=== PATIENT | female | born 1950 | race Two or more races ===

== ENCOUNTER 2018-02-13 14:39 | Outpatient (CLI) | payer OTHER ==
[~2018-02-13 14:39] MED LIST: LEVAQUIN750 MG PO; SYNTHROID150 MCG; TUSSI PRES-B L120 M1 PO; VASOTEC20 MG
== END 2018-02-13 14:40 | disposition home or self-care (01) ==
LOC: LAB 14:39
DX: D64.0 Hereditary sideroblastic anemia (principal)

== ENCOUNTER 2018-02-14 10:05 | Outpatient (CLI) | payer OTHER | END 2018-02-14 15:40 | disposition home or self-care (01) | LOC: SONOGRAMA 10:05 | DX: R10.84 Generalized abdominal pain (principal) ==

== ENCOUNTER 2018-06-07 23:08 | Emergency (ER) | payer OTHER ==
[~2018-06-07] VITALS: Ht 152.4 cm; Wt 68.0 kg
[2018-06-08] MEDS ORDERED: PEPCID40 MG PO (03:58)
[2018-06-08] MEDS ORDERED: ZOFRAN ODT4 MG PO (03:58)
== END 2018-06-08 04:18 | disposition home or self-care (01) ==
LOC: ER 23:08
DX: K52.89 Other specified noninfective gastroenteritis and colitis (principal); E86.0 Dehydration

== ENCOUNTER 2018-07-26 13:09 | Outpatient (CLI) | payer OTHER ==
[~2018-07-26 13:09] MED LIST changes: +PEPCID40 MG PO; +ZOFRAN ODT4 MG PO
== END 2018-07-26 15:29 | disposition home or self-care (01) ==
LOC: LAB 13:09
DX: Z23 Encounter for immunization (principal)

== ENCOUNTER 2019-03-30 11:35 | Emergency (ER) | payer OTHER ==
[~2019-03-30] VITALS: Ht 152.4 cm; Wt 68.0 kg
== END 2019-03-31 11:21 | disposition home or self-care (01) ==
LOC: ER 11:35
DX: K63.89 Other specified diseases of intestine (principal); R10.11 Right upper quadrant pain; R10.13 Epigastric pain

== ENCOUNTER → 2019-07-11 15:21 | Outpatient (CLI) | payer OTHER | END | disposition home or self-care (01) | LOC: LAB 15:21 | DX: J11.1 Influenza due to unidentified influenza virus with other respiratory manifestations (principal); D64.0 Hereditary sideroblastic anemia ==

== ENCOUNTER 2020-03-14 10:00 | Outpatient (CLI) | payer OTHER | END 2020-03-21 15:18 | disposition home or self-care (01) | LOC: PPH VACUNA 10:00 | DX: Z23 Encounter for immunization (principal) | CPT/HCPCS: 90688; G0008 ==

== ENCOUNTER 2020-03-21 08:31 | Outpatient (CLI) | payer OTHER | END 2020-03-21 08:36 | disposition home or self-care (01) | LOC: LAB 08:31 | PROVIDERS: ATTEND Internal Medicine Cardiovascular Disease | DX: E03.8 Other specified hypothyroidism (principal); E55.9 Vitamin D deficiency, unspecified; Z12.11 Encounter for screening for malignant neoplasm of colon; E78.2 Mixed hyperlipidemia; E11.9 Type 2 diabetes mellitus without complications; I10 Essential (primary) hypertension ==

== ENCOUNTER 2020-04-14 16:06 | Emergency (ER) | payer OTHER ==
[~2020-04-14] VITALS: Ht 154.9 cm; Wt 70.3 kg
== END 2020-04-14 16:52 | disposition home or self-care (01) ==
LOC: ER 16:06
DX: S60.042A Contusion of left ring finger without damage to nail, initial encounter (principal); M79.645 Pain in left finger(s); W23.0XXA Caught, crushed, jammed, or pinched between moving objects, initial encounter; Y93.89 Activity, other specified; Y92.69 Other specified industrial and construction area as the place of occurrence of the external cause; Y99.8 Other external cause status

== ENCOUNTER 2020-06-25 10:22 | Outpatient (CLI) | payer OTHER | END 2020-06-25 18:00 | disposition home or self-care (01) | LOC: PPH VACUNA 10:22 | DX: Z23 Encounter for immunization (principal) ==

== ENCOUNTER → 2020-10-08 08:11 | Outpatient (CLI) | payer OTHER | END | disposition home or self-care (01) | LOC: LAB 08:11 | PROVIDERS: ATTEND Internal Medicine Cardiovascular Disease | DX: M46.47 Discitis, unspecified, lumbosacral region (principal); M19.90 Unspecified osteoarthritis, unspecified site; I10 Essential (primary) hypertension; E11.9 Type 2 diabetes mellitus without complications; E03.8 Other specified hypothyroidism; E78.2 Mixed hyperlipidemia; E55.9 Vitamin D deficiency, unspecified ==

== ENCOUNTER → 2020-10-26 | Emergency (ER) | payer OTHER ==
[~2020-10-26] VITALS: Ht 152.4 cm; Wt 70.3 kg
== END | disposition home or self-care (01) ==
LOC: ER 07:11
DX: M54.5 Low back pain (principal)

== ENCOUNTER 2020-12-09 09:05 | Emergency (ER) | payer OTHER ==
[~2020-12-09] VITALS: Ht 152.4 cm; Wt 68.0 kg
== END 2020-12-10 14:31 | disposition home or self-care (01) ==
LOC: ER 09:05 → CPU-OBS 10:09 → ER 10:09
DX: I16.1 Hypertensive emergency (principal); I10 Essential (primary) hypertension; R07.89 Other chest pain

== ENCOUNTER 2020-12-23 13:10 | Emergency (ER) | payer OTHER ==
[~2020-12-23] VITALS: Ht 152.4 cm; Wt 70.3 kg
== END 2020-12-23 20:14 | disposition home or self-care (01) ==
LOC: ER 13:10 → CPU-OBS 13:26 → ER 20:14
DX: R07.89 Other chest pain (principal); R42 Dizziness and giddiness; R11.11 Vomiting without nausea

== ENCOUNTER 2021-01-17 07:16 | Outpatient (CLI) | payer OTHER | END 2021-01-17 07:22 | disposition home or self-care (01) | LOC: LAB 07:16 | PROVIDERS: ATTEND Internal Medicine Cardiovascular Disease | DX: D64.89 Other specified anemias (principal); R10.84 Generalized abdominal pain; E78.49 Other hyperlipidemia; E55.9 Vitamin D deficiency, unspecified; I10 Essential (primary) hypertension; E66.8 Other obesity ==

== ENCOUNTER 2021-01-21 07:23 | Outpatient (CLI) | payer OTHER | END 2021-01-21 07:25 | disposition home or self-care (01) | LOC: NUCLEAR 07:23 | PROVIDERS: ATTEND Internal Medicine Cardiovascular Disease | DX: I20.9 Angina pectoris, unspecified (principal); I10 Essential (primary) hypertension | CPT/HCPCS: 78452; 93017; A9500; J0153 ==

== ENCOUNTER 2021-04-06 08:00 | Outpatient (CLI) | payer OTHER | END 2021-04-06 08:15 | disposition home or self-care (01) | LOC: PPH VACUNA 08:00 | PROVIDERS: ATTEND Emergency Medicine Pediatric Emergency Medicine | DX: Z23 Encounter for immunization (principal) ==

== ENCOUNTER 2021-08-12 14:12 | Outpatient (CLI) | payer OTHER | END 2021-08-12 14:25 | disposition home or self-care (01) | LOC: SONOGRAMA 14:12 | PROVIDERS: ATTEND Internal Medicine Cardiovascular Disease | DX: M12.9 Arthropathy, unspecified (principal) ==

== ENCOUNTER 2021-12-14 12:57 | Outpatient (CLI) | payer OTHER ==
[~2021-12-14 12:57] MED LIST changes: +NEURONTIN300 MG PO
== END 2021-12-14 13:06 | disposition home or self-care (01) ==
LOC: MRI 12:57
PROVIDERS: ATTEND Physical Medicine & Rehabilitation
DX: M54.16 Radiculopathy, lumbar region (principal)
CPT/HCPCS: 72148

== ENCOUNTER 2022-02-24 08:00 | Outpatient (CLI) | payer OTHER | END 2022-02-24 08:05 | disposition home or self-care (01) | LOC: PPH VACUNA 08:00 | PROVIDERS: ATTEND Emergency Medicine Pediatric Emergency Medicine | DX: Z23 Encounter for immunization (principal) | CPT/HCPCS: 90686; G0008 ==

== ENCOUNTER 2022-02-26 14:11 | Outpatient (CLI) | payer OTHER | END 2022-02-26 14:21 | disposition home or self-care (01) | LOC: MRI 14:11 | PROVIDERS: ATTEND Obstetrics & Gynecology | DX: M17.11 Unilateral primary osteoarthritis, right knee (principal) | CPT/HCPCS: 73718 ==

== ENCOUNTER 2022-03-10 12:50 | Outpatient (CLI) | payer OTHER ==
[2022-03-12] MEDS ORDERED: CELEBREX200MG PO (11:07)
[2022-03-12] MEDS ORDERED: ULTRACET PO (11:08)
== END 2022-03-10 13:00 | disposition home or self-care (01) ==
LOC: PPH VACUNA 12:50
PROVIDERS: ATTEND Emergency Medicine Pediatric Emergency Medicine
DX: Z23 Encounter for immunization (principal)

== ENCOUNTER 2022-04-06 14:27 | Outpatient (CLI) | payer OTHER ==
[~2022-04-06 14:27] MED LIST changes: +CELEBREX200MG PO; +ULTRACET PO
== END 2022-04-06 14:32 | disposition home or self-care (01) ==
LOC: RAD 14:27
PROVIDERS: ATTEND Orthopaedic Surgery
DX: M25.551 Pain in right hip (principal); M17.11 Unilateral primary osteoarthritis, right knee

== ENCOUNTER 2022-04-09 14:19 | Outpatient (CLI) | payer OTHER | END 2022-04-09 14:20 | disposition home or self-care (01) | LOC: NUCLEAR 14:19 | PROVIDERS: ATTEND Orthopaedic Surgery | DX: M81.0 Age-related osteoporosis without current pathological fracture (principal) ==

== ENCOUNTER 2022-11-22 06:35 | Emergency (ER) | payer OTHER ==
[~2022-11-22] VITALS: Ht 154.9 cm; Wt 70.3 kg
== END 2022-11-22 14:33 | disposition home or self-care (01) ==
LOC: ER 06:35
DX: R19.7 Diarrhea, unspecified (principal); U07.1 COVID-19; J02.9 Acute pharyngitis, unspecified; Z91.013 Allergy to seafood

== ENCOUNTER 2023-01-08 11:37 | Outpatient (CLI) | payer OTHER | END 2023-01-08 11:43 | disposition home or self-care (01) | LOC: LAB 11:37 | PROVIDERS: ATTEND Internal Medicine Cardiovascular Disease | DX: E11.9 Type 2 diabetes mellitus without complications (principal); E03.9 Hypothyroidism, unspecified; E78.2 Mixed hyperlipidemia; I10 Essential (primary) hypertension ==

== ENCOUNTER → 2023-02-24 | Outpatient (CLI) | payer OTHER | END | disposition home or self-care (01) | LOC: PPH VACUNA | PROVIDERS: ATTEND Emergency Medicine Pediatric Emergency Medicine | DX: Z23 Encounter for immunization (principal) | CPT/HCPCS: 90686; G0008 ==

== ENCOUNTER 2023-03-07 13:52 | Outpatient (CLI) | payer OTHER | END 2023-03-07 13:53 | disposition home or self-care (01) | LOC: LAB 13:52 | PROVIDERS: ATTEND Internal Medicine Cardiovascular Disease | DX: J11.1 Influenza due to unidentified influenza virus with other respiratory manifestations (principal); A49.3 Mycoplasma infection, unspecified site; Z20.822 Contact with and (suspected) exposure to COVID-19 ==

== ENCOUNTER 2023-04-07 14:09 | Outpatient (CLI) | payer OTHER | END 2023-04-07 14:25 | disposition home or self-care (01) | LOC: MAMO-SONO 14:09 | PROVIDERS: ATTEND Internal Medicine Cardiovascular Disease | DX: N60.12 Diffuse cystic mastopathy of left breast (principal); Z12.31 Encounter for screening mammogram for malignant neoplasm of breast ==

== ENCOUNTER → 2023-04-23 11:21 | Outpatient (CLI) | payer OTHER ==
[2023-04-23 11:48] LABS: HEMATOCRIT 32.9 % (36.0-45.00); HEMOGLOBIN 11.2 g/dL (12.0-15.00); MEAN CORPUSCULAR HEMOGLOBIN 32.3 pg (27.00-32.0); MEAN CORPUSCULAR HGB CONC 34.1 g/dl (32.0-36.0); PLATELET COUNT 162 K/uL (150-450); RED BLOOD COUNT 3.46 M/uL (4.00-6.00); RED CELL DISTRIBUTION WIDTH 13.4 % (11.5-14.5)
[2023-04-23 12:13] LABS: CALCIUM 9.3 mg/dL (8.5-10.1); CREATININE SERUM 1.35 mg/dL (0.55-1.02); GFR 38.33; POTASSIUM 4.55 mEq/L (3.5-5.1)
[2023-04-23 12:17] LABS: INR 1.06; PARTIAL THROMBOPLASTIN TIME 23.1 SECONDS (22.0-34.0); PROTHROMBIN TIME 11.1 SECONDS (9.0-11.5)
== END | disposition home or self-care (01) ==
LOC: LAB 11:21
DX: D68.9 Coagulation defect, unspecified (principal); E78.5 Hyperlipidemia, unspecified

== ENCOUNTER 2023-06-04 10:14 | Outpatient (CLI) | payer OTHER ==
[2023-06-04 11:18] LABS: HEMATOCRIT 31.3 % (36.0-45.00); HEMOGLOBIN 10.7 g/dL (12.0-15.00); MEAN CELL VOLUME 94.7 fL (80.00-100.00); MEAN CORPUSCULAR HEMOGLOBIN 32.3 pg (27.00-32.0); MEAN CORPUSCULAR HGB CONC 34.1 g/dl (32.0-36.0); PLATELET COUNT 198 K/uL (150-450); RED CELL DISTRIBUTION WIDTH 13.4 % (11.5-14.5)
[2023-06-04 12:23] LABS: ALBUMIN 3.5 gm/dL (3.4-5.0); BILIRUBIN TOTAL 0.75 mg/dL (0.3-1.2); CALCIUM 9.1 mg/dL (8.5-10.1); CHOL HDL RATIO 2.9 (0-5.0); CREATININE SERUM 1.44 mg/dL (0.55-1.02); FREE TRIODOTIRONINE 2.21 pg/ml (2.18-3.98); GFR 35.58; POTASSIUM 4.17 mEq/L (3.5-5.1); T4 FREE 1.1 NG/ML (0.76-1.46); TOTAL PROTEIN 6.5 gm/dL (6.4-8.2); TSH 1.8 uIU/mL (0.358-3.74)
== END 2023-06-04 10:18 | disposition home or self-care (01) ==
LOC: LAB 10:14
PROVIDERS: ATTEND Internal Medicine
DX: E03.9 Hypothyroidism, unspecified (principal); E78.9 Disorder of lipoprotein metabolism, unspecified; R73.9 Hyperglycemia, unspecified; E55.9 Vitamin D deficiency, unspecified; I10 Essential (primary) hypertension

== ENCOUNTER 2023-06-05 14:32 | Emergency (ER) | payer OTHER ==
[~2023-06-05] VITALS: Ht 152.4 cm; Wt 68.0 kg
[2023-06-05 15:39] LABS: HEMATOCRIT 34.3 % (36.0-45.00); HEMOGLOBIN 11.7 g/dL (12.0-15.00); MEAN CELL VOLUME 95.4 fL (80.00-100.00); MEAN CORPUSCULAR HEMOGLOBIN 32.6 pg (27.00-32.0); MEAN CORPUSCULAR HGB CONC 34.2 g/dl (32.0-36.0); PLATELET COUNT 199 K/uL (150-450); RED BLOOD COUNT 3.59 M/uL (4.00-6.00); RED CELL DISTRIBUTION WIDTH 13.6 % (11.5-14.5)
[2023-06-05 15:58] LABS: ALBUMIN 3.7 gm/dL (3.4-5.0); BILIRUBIN TOTAL 0.62 mg/dL (0.3-1.2); BILIRUBIN,CONJUGATED 0.19 mg/dL (0.0-0.2); BILIRUBIN,UNCONJUGATED 0.43 mg/dL (0.0-0.6); CREATININE SERUM 1.58 mg/dL (0.55-1.02); GFR 31.97; POTASSIUM 4.47 mEq/L (3.5-5.1)
[2023-06-05 17:13] LABS: PH,URINE 5.5 (5.0-8.0); URINE APPEARANCE Clear; URINE BILIRRUBIN Negative (NEGATIVE); URINE BLOOD Negative; URINE COLOR Yellow; URINE GLUCOSE Negative (NEGATIVE); URINE LEUKOCYTE Trace; URINE NITRATE Negative; URINE PROTEIN Negative (NEGATIVE); URINE UROBILINOGEN 0.2 E.U./dl
[2023-06-05 17:17] LABS: URINE BACTERIA 20.1 uL (0.0-1933); URINE EPITHELIAL CELLS 6.7 uL (0.0-38.8); URINE WBC 15.4 uL (0.0-23.2)
[2023-06-05 17:24] LABS: URINE RBC 1.8 uL (0.0-20.8)
== END 2023-06-05 22:38 | disposition home or self-care (01) ==
LOC: ER 14:32
PROVIDERS: General Practice
DX: K52.9 Noninfective gastroenteritis and colitis, unspecified (principal); I10 Essential (primary) hypertension; Z91.013 Allergy to seafood
CPT/HCPCS: 36415; 96365; 96366; 99284; J0744; J2405; J3490

== ENCOUNTER 2023-06-28 13:30 | Outpatient (CLI) | payer OTHER | END 2023-06-28 13:38 | disposition home or self-care (01) | LOC: SONOGRAMA 13:30 | PROVIDERS: ATTEND Internal Medicine | DX: N18.2 Chronic kidney disease, stage 2 (mild) (principal); Z91.013 Allergy to seafood ==

== ENCOUNTER 2023-07-04 09:51 | Outpatient (CLI) | payer OTHER | END 2023-07-04 09:53 | disposition home or self-care (01) | LOC: NUCLEAR 09:51 | PROVIDERS: ATTEND Internal Medicine | DX: R60.0 Localized edema (principal) ==

== ENCOUNTER 2023-07-08 14:50 | Outpatient (CLI) | payer OTHER | END 2023-07-08 15:05 | disposition home or self-care (01) | LOC: LAB 14:50 | PROVIDERS: ATTEND Internal Medicine | DX: N18.30 Chronic kidney disease, stage 3 unspecified (principal); D64.9 Anemia, unspecified; D50.0 Iron deficiency anemia secondary to blood loss (chronic); D51.0 Vitamin B12 deficiency anemia due to intrinsic factor deficiency; Z91.013 Allergy to seafood ==

== ENCOUNTER → 2023-07-11 08:34 | Outpatient (CLI) | payer OTHER ==
[2023-07-11 09:53] LABS: CREATINE CLEARANCE 26.7 ML/MIN (97-137); CREATININE SERUM 1.32 mg/dL (0.6-1.0)
== END | disposition home or self-care (01) ==
LOC: LAB 08:34
PROVIDERS: ATTEND Internal Medicine Hematology & Oncology
DX: N18.30 Chronic kidney disease, stage 3 unspecified (principal); D64.9 Anemia, unspecified; D50.0 Iron deficiency anemia secondary to blood loss (chronic); D51.0 Vitamin B12 deficiency anemia due to intrinsic factor deficiency

== ENCOUNTER 2024-02-04 11:12 | Outpatient (CLI) | payer OTHER ==
[2024-02-04 12:09] LABS: URINE APPEARANCE Clear; URINE BILIRRUBIN Negative (NEGATIVE); URINE BLOOD Negative; URINE COLOR Yellow; URINE GLUCOSE Negative (NEGATIVE); URINE KETONE Negative (NEGATIVE); URINE LEUKOCYTE Negative; URINE NITRATE Negative; URINE PROTEIN Negative (NEGATIVE); URINE UROBILINOGEN 0.2 E.U./dl
[2024-02-04 12:09] LABS: HEMATOCRIT 32.1 % (36.0-45.00); HEMOGLOBIN 10.9 g/dL (12.0-15.00); MEAN CELL VOLUME 95.5 fL (80.00-100.00); MEAN CORPUSCULAR HEMOGLOBIN 32.3 pg (27.00-32.0); MEAN CORPUSCULAR HGB CONC 33.8 g/dl (32.0-36.0); PLATELET COUNT 161 K/uL (150-450); RED BLOOD COUNT 3.36 M/uL (4.00-6.00); RED CELL DISTRIBUTION WIDTH 13.7 % (11.5-14.5)
[2024-02-04 12:11] LABS: URINE BACTERIA 115.9 uL (0.0-1933); URINE EPITHELIAL CELLS 6.3 uL (0.0-38.8); URINE WBC 5.5 uL (0.0-23.2)
[2024-02-04 12:12] LABS: URINE CAST 0.45 uL (0.0-1.40); URINE RBC 1.8 uL (0.0-20.8)
[2024-02-04 12:18] LABS: ERYTHROCYTE SEDIMENTATION RATE 9 mm/hr
[2024-02-04 12:52] LABS: ALBUMIN 3.7 gm/dL (3.4-5.0); ALKALINE PHOSPHATASE 88 U/L (50-136); ALT/SGPT 15 U/L (12-78); ANION GAP 8 (10.0-20.0); AST/SGOT 12 U/L (15-37); BILIRUBIN TOTAL 0.68 mg/dL (0.3-1.2); BLOOD UREA NITROGEN 40 mg/dL (7-18); BUN CREA RATIO 30 (7.0-25.0); CALCIUM 8.9 mg/dL (8.5-10.1); CARBON DIOXIDE 27 mEq/L (21-32); CHLORIDE 115 mmol/L (98-107); CHOL HDL RATIO 2.9 (0-5.0); CHOLESTEROL 156 mg/dL (0-200); CREATININE SERUM 1.33 mg/dL (0.55-1.02); GFR 38.89; GLUCOSE FASTING 87 mg/dL (65-100); HDL 54 mg/dl (40-60); LDL 73 mg/dl (0-130); OSMOLALITY SERUM 298 MOSM/KG (275-295); POTASSIUM 4.71 mEq/L (3.5-5.1); SODIUM 145 mmol/L (136-145); T4 TOTAL 10.41 UG/DL (4.8-13.9); TOTAL PROTEIN 6.7 gm/dL (6.4-8.2); TRIGLYCERIDES 144 mg/dL (0-150); VLDL 28 (0-39)
[2024-02-04 12:54] LABS: C-REACTIVE PROTEIN < 0.29 MG/DL (0.00-0.29)
== END 2024-02-04 11:19 | disposition home or self-care (01) ==
LOC: LAB 11:12
PROVIDERS: ATTEND Internal Medicine
DX: K29.70 Gastritis, unspecified, without bleeding (principal); N18.32 Chronic kidney disease, stage 3b; I10 Essential (primary) hypertension; R73.9 Hyperglycemia, unspecified; Z12.10 Encounter for screening for malignant neoplasm of intestinal tract, unspecified; E03.9 Hypothyroidism, unspecified

== ENCOUNTER 2024-09-10 07:21 | Outpatient (CLI) | payer OTHER | END 2024-09-10 07:28 | disposition home or self-care (01) | LOC: TOM 07:21 | PROVIDERS: ATTEND Internal Medicine Gastroenterology | DX: Z12.11 Encounter for screening for malignant neoplasm of colon (principal) ==

== ENCOUNTER 2025-06-07 10:10 | Outpatient (CLI) | payer OTHER | END 2025-06-07 10:12 | disposition home or self-care (01) | LOC: NUCLEAR 10:10 | PROVIDERS: ATTEND Internal Medicine | DX: I35.1 Nonrheumatic aortic (valve) insufficiency (principal) ==